=== PATIENT | male | born 1980 | race Caucasian/White ===

== ENCOUNTER 2016-08-17 05:36 | Inpatient (IN) | payer MEDICARE, OTHER ==
[~2016-08-17] VITALS: Ht 172.7 cm; Wt 57.6 kg
[~2016-08-17 05:36] MED LIST: ASPIRIN 325MG325 MG GT; DITROPAN SY5 MG/5 ML GT; EFFER-K 10 MEQ10 MEQ GT; FEROSUL220 MG/51 GT; FLAVOXATE GT; LINZESS290 MCG GT; LIORESAL TAB 1010 MG GT; LORTAB 10-3251 EACH GT; MIRALAX PACK 171 PKT GT; MYRBETRIQ50 MG GT; NEXIUM40 MG GT; RITALIN TAB 1010 MG GT; SYNTHROID 100100 MCG GT; TENORMIN 25 MG25 MG GT; ZANAFLEX2 MG GT; [UNRECOGNIZED DRUG - OTHER] GT
[2016-08-17 07:16] LABS: HEMOGLOBIN 12.4 gm/dl (14.0-17.5); RED BLOOD COUNT 4.68 M/UL (4.20-5.50); WHITE BLOOD COUNT 8.8 K/UL (4.5-11.0)
[2016-08-17 07:33] LABS: BUN/CREATININE RATIO 50 (0-10)
[2016-08-17 21:13] LABS: HEMOGLOBIN 9.4 gm/dl (14.0-17.5); RED BLOOD COUNT 3.48 M/UL (4.20-5.50); WHITE BLOOD COUNT 23.2 K/UL (4.5-11.0)
[2016-08-18 03:24] LABS: HEMOGLOBIN 6.8 gm/dl (14.0-17.5)
[2016-08-18 05:03] LABS: BUN/CREATININE RATIO 53 (0-10)
[2016-08-18 05:31] LABS: RED BLOOD COUNT 2.52 M/UL (4.20-5.50); WHITE BLOOD COUNT 7.3 K/UL (4.5-11.0)
[2016-08-19 08:12] LABS: HEMOGLOBIN 9.2 gm/dl (14.0-17.5)
[2016-08-19 08:13] LABS: RED BLOOD COUNT 3.33 M/UL (4.20-5.50); WHITE BLOOD COUNT 12.2 K/UL (4.5-11.0)
[2016-08-19 08:22] LABS: BUN/CREATININE RATIO 30 (0-10)
[2016-08-20 05:54] LABS: HEMOGLOBIN 8.9 gm/dl (14.0-17.5); RED BLOOD COUNT 3.21 M/UL (4.20-5.50); WHITE BLOOD COUNT 8.6 K/UL (4.5-11.0)
[2016-08-20 06:09] LABS: BUN/CREATININE RATIO 37 (0-10)
[2016-08-22 06:28] LABS: HEMOGLOBIN 8.3 gm/dl (14.0-17.5); RED BLOOD COUNT 2.97 M/UL (4.20-5.50); WHITE BLOOD COUNT 8.5 K/UL (4.5-11.0)
--- NOTE | 2016-08-22 15:56 | NUR ---
FLUSHED G-TUBE AND S/P CATHETER TODAY WITH NO DIFFICULT. PATIENT JANET WELL
[2016-08-23 06:01] LABS: HEMOGLOBIN 7.4 gm/dl (14.0-17.5); RED BLOOD COUNT 2.71 M/UL (4.20-5.50)
[2016-08-23 06:20] LABS: WHITE BLOOD COUNT 11.1 K/UL (4.5-11.0)
[2016-08-23 06:21] LABS: BUN/CREATININE RATIO 47 (0-10)
--- NOTE | 2016-08-23 15:03 | NUR ---
PULSE OX 82-84. OXYGEN 2L VIA N/C STARTED PULSE OX 87-[address] WORLEY NEW ORDER RECEIVED
[2016-08-24 05:57] LABS: HEMOGLOBIN 7.9 gm/dl (14.0-17.5); RED BLOOD COUNT 2.83 M/UL (4.20-5.50)
[2016-08-24 05:58] LABS: WHITE BLOOD COUNT 17.5 K/UL (4.5-11.0)
[2016-08-24 06:15] LABS: BUN/CREATININE RATIO 43 (0-10)
--- NOTE | 2016-08-24 11:17 | NUR ---
REPORTED TO DR. WORLEY PATIENT CONDITION R/T HEART RATE, O2 SAT AND B/P. RECEIVED ORDER.
[2016-08-25 05:46] LABS: HEMOGLOBIN 7.3 gm/dl (14.0-17.5); RED BLOOD COUNT 2.61 M/UL (4.20-5.50)
[2016-08-25 05:56] LABS: BUN/CREATININE RATIO 53 (0-10)
[2016-08-26 06:59] LABS: RED BLOOD COUNT 2.56 M/UL (4.20-5.50)
[2016-08-26 07:01] LABS: WHITE BLOOD COUNT 11.4 K/UL (4.5-11.0)
[2016-08-26 07:03] LABS: HEMOGLOBIN 6.9 gm/dl (14.0-17.5)
[2016-08-26 07:30] LABS: BUN/CREATININE RATIO 47 (0-10)
[2016-08-27 05:39] LABS: HEMOGLOBIN 9.3 gm/dl (14.0-17.5); RED BLOOD COUNT 3.54 M/UL (4.20-5.50); WHITE BLOOD COUNT 11.1 K/UL (4.5-11.0)
[2016-08-27 05:47] LABS: BUN/CREATININE RATIO 50 (0-10)
[2016-08-28 05:55] LABS: RED BLOOD COUNT 3.8 M/UL (4.20-5.50); WHITE BLOOD COUNT 10.2 K/UL (4.5-11.0)
[2016-08-28 06:15] LABS: BUN/CREATININE RATIO 60 (0-10)
[2017-03-02] MEDS ORDERED: PROMOD 946 ML BT1 EA GT
[2017-03-02] MEDS ORDERED: ASPIRIN81 MG GT (23:57)
[2017-03-02] MEDS ORDERED: ASPIRIN81 MG PO (23:57)
[2017-03-02] MEDS ORDERED: PROTONIX40 M1 GT (23:58)
[2017-03-02] MEDS ORDERED: VITAMIN C500 MG/15 GT (23:59)
[2017-03-03] MEDS ORDERED: COLACE SOL100 MG/10 GT
[2017-03-03] MEDS ORDERED: MILK OF MA400 MG/5 M GT (00:01)
[2017-03-03] MEDS ORDERED: BISACODYL10 MG PR (00:02)
[2017-03-03] MEDS ORDERED: FLEET OIL ENEM133 ML PR (00:03)
[2017-03-03] MEDS ORDERED: ALBUTEROL2.5 MG/3 M NEB (00:04)
[2017-03-03] MEDS ORDERED: HYDROXYZINE HCL25 MG GT (00:05)
[2017-03-03] MEDS ORDERED: XOPENEX1.25 MG/3 NEB (00:08)
[2017-03-03] MEDS ORDERED: BENADRYL 25MG C25 MG GT (00:08)
[2017-03-03] MEDS ORDERED: TYLENOL EL160 MG/5 M GT (00:09)
[2017-03-03] MEDS ORDERED: CYCLOBENZAPRINE10 MG GT (00:10)
[2017-03-03] MEDS ORDERED: CHILDREN'S100 MG/52 GT (00:11)
[2017-03-03] MEDS ORDERED: NYSTATIN60 GM TOP (00:12)
[2017-03-03] MEDS ORDERED: ZINC OXIDE28 GM TOP (00:13)
[2017-03-03] MEDS ORDERED: [UNRECOGNIZED DRUG - OTHER] TOP (00:14)
== END 2016-08-28 20:40 | DRG 498 ==
LOC: OR 05:36 → M/S 05:37 → OR 08:15 → M/S 17:08 → OR 08-20 05:30 → M/S 08-20 17:49 → OR 08-20 17:49 → M/S 08-20 18:30
PROVIDERS: Internal Medicine; Internal Medicine Infectious Disease; Physician Assistant; ADMIT Orthopaedic Surgery
PROC: 0QP604Z Removal of Internal Fixation Device from Right Upper Femur, Open Approach (ICD-10-PCS; 2016-08-17)
PROC: 0LNJ0ZZ Release Right Hip Tendon, Open Approach (ICD-10-PCS; 2016-08-17)
PROC: 0QB60ZZ Excision of Right Upper Femur, Open Approach (ICD-10-PCS; principal; 2016-08-17 15:30)
PROC: 02HV33Z Insertion of Infusion Device into Superior Vena Cava, Percutaneous Approach (ICD-10-PCS; 2016-08-18)
PROC: B548ZZA Ultrasonography of Superior Vena Cava, Guidance (ICD-10-PCS; 2016-08-18)
PROC: 30233N1 Transfusion of Nonautologous Red Blood Cells into Peripheral Vein, Percutaneous Approach (ICD-10-PCS; 2016-08-18)
PROC: 30233N1 Transfusion of Nonautologous Red Blood Cells into Peripheral Vein, Percutaneous Approach (ICD-10-PCS; 2016-08-18)
PROC: 0LNJ0ZZ Release Right Hip Tendon, Open Approach (ICD-10-PCS; 2016-08-22)
PROC: 30233N1 Transfusion of Nonautologous Red Blood Cells into Peripheral Vein, Percutaneous Approach (ICD-10-PCS; 2016-08-26)
PROC: 30233N1 Transfusion of Nonautologous Red Blood Cells into Peripheral Vein, Percutaneous Approach (ICD-10-PCS; 2016-08-26)
DX: M86.451 Chronic osteomyelitis with draining sinus, right femur (principal); G82.50 Quadriplegia, unspecified; L97.119 Non-pressure chronic ulcer of right thigh with unspecified severity; M87.851 Other osteonecrosis, right femur; M00.851 Arthritis due to other bacteria, right hip; D62 Acute posthemorrhagic anemia; J90 Pleural effusion, not elsewhere classified; S72.001K Fracture of unspecified part of neck of right femur, subsequent encounter for closed fracture with nonunion; R47.01 Aphasia; J98.11 Atelectasis; T83.510A Infection and inflammatory reaction due to cystostomy catheter, initial encounter; N30.00 Acute cystitis without hematuria; B95.62 Methicillin resistant Staphylococcus aureus infection as the cause of diseases classified elsewhere; M24.551 Contracture, right hip; S14.101S Unspecified injury at C1 level of cervical spinal cord, sequela; S12.000S Unspecified displaced fracture of first cervical vertebra, sequela; V89.2XXS Person injured in unspecified motor-vehicle accident, traffic, sequela; D50.9 Iron deficiency anemia, unspecified; R09.02 Hypoxemia; I10 Essential (primary) hypertension; R00.0 Tachycardia, unspecified; E03.9 Hypothyroidism, unspecified; J98.6 Disorders of diaphragm; K21.9 Gastro-esophageal reflux disease without esophagitis; B96.4 Proteus (mirabilis) (morganii) as the cause of diseases classified elsewhere; F41.9 Anxiety disorder, unspecified; Y73.1 Therapeutic (nonsurgical) and rehabilitative gastroenterology and urology devices associated with adverse incidents; Z87.891 Personal history of nicotine dependence; Z87.820 Personal history of traumatic brain injury; Z87.01 Personal history of pneumonia (recurrent); Z86.14 Personal history of Methicillin resistant Staphylococcus aureus infection; Z74.01 Bed confinement status; Z93.3 Colostomy status; Z93.1 Gastrostomy status; Z79.82 Long term (current) use of aspirin; Z79.891 Long term (current) use of opiate analgesic; Z79.899 Other long term (current) drug therapy; Z88.3 Allergy status to other anti-infective agents; Z88.0 Allergy status to penicillin; Z98.890 Other specified postprocedural states; Z82.49 Family history of ischemic heart disease and other diseases of the circulatory system; Z83.49 Family history of other endocrine, nutritional and metabolic diseases
CPT/HCPCS: 36415; 71010; 73501; 80048; 80053; 80202; 81001; 83605; 84439; 84443; 85014; 85018; 85025; 85027; 86140; 86850; 86900; 86901; 86920; 87070; 87077; 87086; 87186; 87205; 93005; 94640; 94664; 94760; J0696; J1200; J1335; J1650; J1940; J1956; J2250; J2270; J2370; J2405; J3010; J3370; J7030; J7050; J7070; J7120; P9016; P9045